=== PATIENT | male | born 1950 ===

== ENCOUNTER 2022-10-05 07:45 | Inpatient (IN) | payer OTHER ==
[~2022-10-05] VITALS: Ht 177.8 cm; Wt 124.3 kg
[2022-10-05] MEDS ORDERED: LOSARTAN-HCTZ1 EAC1 PO (09:13)
[2022-10-05] MEDS ORDERED: ATORVASTATIN CA40 MG PO (09:14)
[2022-10-05] MEDS ORDERED: CARVEDILOL12.5 MG PO (09:14)
[2022-10-05] MEDS ORDERED: GABAP PO (09:15)
[2022-10-05] MEDS ORDERED: BAYER THERAPY325 MG PO (09:15)
[2022-10-05] MEDS ORDERED: [UNRECOGNIZED DRUG - CODE] PO (09:16)
[2022-10-05] MEDS ORDERED: DETROL LA4 MG PO (09:16)
[2022-10-05] MEDS ORDERED: POMALYST2 MG PO (09:18)
[2022-10-05] MEDS ORDERED: DARZALEX FASPRO15 ML SQ (09:53)
[2022-10-05] MEDS ORDERED: ZOMETA (09:53)
[2022-10-11] MEDS ORDERED: FAMOTIDINE40 MG (13:14)
[2022-10-11] MEDS ORDERED: GABAPENTIN800 M1 (13:14)
[2022-10-11] MEDS ORDERED: LOSARTAN-HCTZ1 EAC2 (13:14)
[2022-10-11] MEDS ORDERED: GLIMEPIRIDE1 M1 (13:15)
[2022-10-11] MEDS ORDERED: DEXAMETHASONE4 MG (13:15)
[2022-10-11] MEDS ORDERED: OZEMPIC0.25 MG/0. (13:15)
[2022-10-11] MEDS ORDERED: OXYBUTYNIN CHLOR5 M1 (13:15)
[2022-10-11] MEDS ORDERED: ZOVIRAX800 MG (13:15)
[2022-10-13] MEDS ORDERED: PERCOCET 5-3251 EACH PO (15:33)
[2022-10-13] MEDS ORDERED: ELIQUIS2.5 MG PO (15:33)
[2022-10-13] MEDS ORDERED: DUI500 PO (15:33)
== END 2022-10-13 18:14 | DRG 470 ==
LOC: SURH 10-11 06:44 → O/R 10-11 06:44 → SURG 10-11 07:45 → SURH 10-11 16:52
PROVIDERS: ADMIT Orthopaedic Surgery; ATTEND Orthopaedic Surgery
PROC: 0SRB0J9 Replacement of Left Hip Joint with Synthetic Substitute, Cemented, Open Approach (ICD-10-PCS; principal; 2022-10-11 10:00)
DX: M16.12 Unilateral primary osteoarthritis, left hip (principal); D62 Acute posthemorrhagic anemia; I10 Essential (primary) hypertension